=== PATIENT | male | born 1975 | race Hispanic/Latino ===

== ENCOUNTER 2019-10-30 12:10 | Emergency (ER) | payer BC ==
[2019-10-30] MEDS ORDERED: Lidocaine 1% (PF) 30 ML VIAL ONE (13:30)
[2019-10-30] MEDS ORDERED: HYDROcodone/Acetaminophen 10/325 mg Tablet ONE (13:30)
[2019-10-30] MEDS ORDERED: Adacel (T-DAP) 0.5 ML SYRINGE ONE (13:30)
== END 2019-10-30 14:19 | disposition home or self-care (01) ==
LOC: ERS 12:10
DX: S01.81XA Laceration without foreign body of other part of head, initial encounter (principal); I10 Essential (primary) hypertension; F41.9 Anxiety disorder, unspecified; F32.9 Major depressive disorder, single episode, unspecified; Z79.899 Other long term (current) drug therapy; W29.8XXA Contact with other powered hand tools and household machinery, initial encounter
CPT/HCPCS: 12013; 90471; 90715; J2001

== ENCOUNTER 2020-02-21 18:37 | Inpatient (IN) | payer BC, OTHER ==
[2020-02-21 19:08] LABS: #Eosinphils 0.3 thou/uL (0.0-0.7); #Lymphocytes 3.6 thou/uL (1.20-3.40); #Monocytes 0.4 thou/uL (0.11-0.59); #Neutrophils 3.2 thou/uL (1.40-6.50); %Basophils 0.2 % (0.0-1.0); %Eosinophils 3.8 % (0.0-10.0); %Lymphocytes 47.7 % (21.0-51.0); %Monocytes 5.6 % (0.0-10.0); %Neutrophils 42.7 % (42.0-75.0); Hemoglobin 14.7 g/dL (14.0-18.0); Mean Corpuscular HGB CONC 34.4 g/dL (32.0-36.0); Mean Corpuscular Hemoglobin 32.3 pg (27.0-31.0); Mean Corpuscular Volume 94.1 fL (78.0-98.0); Platelet Count 165 thou/uL (130-400); RBC Distribution Width 12.5 % (11.5-14.5); Red Blood Cell (RBC) Count 4.55 mill/uL (4.70-6.10); White Blood Cell (WBC) Count 7.5 thou/uL (4.8-10.8)
[2020-02-21 19:25] LABS: Bilirubin Negative (Negative); Blood, Urine Negative (Negative); Clarity Clear (Clear); Glucose, Urine (Dipstick) Normal (Negative); Ketone, Urine Negative (Negative); Leukocyte Negative Leu/uL (Negative); Nitrite Negative (Negative); Protein, Urine (Dipstick) 20 mg/dL (Neg-Trace); Specific Gravity, Urine 1.015 (1.002-1.036); Urobilinogen Normal mg/dL (Less than 2); pH, Urine 5.5 (5.0-9.0)
[2020-02-21 19:25] LABS: ALT (SGPT) 87 U/L (8-55); AST (SGOT) 67 U/L (5-34); Acetaminophen Less than 6.0 mcg/mL (10.0-30.0); Albumin 4.3 g/dL (3.5-5.0); Alcohol 18 mg/dL (Less than 10); Alkaline Phosphatase 91 U/L (40-110); Anion Gap 19 mmol/L (10-20); BUN (Urea Nitrogen) 14 mg/dL (8.9-20.6); Bilirubin, Total 0.4 mg/dL (0.2-1.2); CK (CPK) 134 U/L (30-200); Calc. Creatinine Clearance 0 mL/min (70-130); Calcium 8.8 mg/dL (7.8-10.44); Carbon Dioxide 24 mmol/L (22-29); Chloride 99 mmol/L (98-107); Estimated GFR-MDRD 74; Globulin 3.1 g/dL (2.4-3.5); Glucose 186 mg/dL (70-105); Magnesium 2.1 mg/dL (1.6-2.6); Potassium 3.1 mmol/L (3.5-5.1); Protein, Total 7.4 g/dL (6.0-8.3); Salicylate Less than 8.0 mg/dL (15.0-30.0); Sodium 139 mmol/L (136-145)
[2020-02-21] MEDS ORDERED: Naloxone HCl 0.4 mg/ml Vial ONE (19:39)
[2020-02-21 19:40] LABS: Amphetamine Not Detected (NotDetected); Barbiturates Screen Not Detected (NotDetected); Benzodiazepine Screen Detected (NotDetected); Cocaine Metabolite Screen Not Detected (NotDetected); Medtox Control Line Valid? VALID (VALID); Medtox Reader # READER 1; Methadone Not Detected (NotDetected); Methamphetamine Not Detected (NotDetected); Opiate Screen Detected (NotDetected); Oxycodone Screen Not Detected (NotDetected); Phencyclidine (PCP) Not Detected (NotDetected); THC/Cannabinoid Screen Not Detected (NotDetected); Tricyclic Screen Not Detected (NotDetected)
--- NOTE | 2020-02-21 19:54 | CT ---
EXAM: BRAIN CT WITHOUT IV CONTRAST: 02/21/20 HISTORY: Suspected overdose. FINDINGS: No focal mass or midline shift. No intra or extra-axial hemorrhage. Right maxillary mucosal disease/m ucous retention cyst. IMPRESSION: No acute intracranial process. No mass or bleed. Right maxillary sinus focal mucosal disease. POS: RRE
--- NOTE | 2020-02-21 19:56 | RAD ---
CHEST ONE VIEW: 02/21/20 HISTORY: Suspected overdose, agonal breathing. COMPARISON: 12/13/09. FINDINGS: Poor inspiration. Minimal right hemidiaphragm elevation. Minimal linear parenchymal change in the rig ht lower mid lung zone, horizontal, having the appearance that certainly could represent some focal s ubsegmental atelectasis. No confluent pneumonia or overt pleural effusion. IMPRESSION: Minimal right hemidiaphragm elevation with some linear parenchymal change in the right mid lower lung zone, probably minimal subsegmental atelectasis. Overall decreased inspiratory effort. POS: RRE
[2020-02-21] MEDS ORDERED: Potassium Chloride 20 MEQ/100 ML PREMIX BAG ONE (20:39)
[2020-02-21] MEDS ORDERED: Ondansetron ODT 4 MG TAB PO PRN (23:24)
[2020-02-21] MEDS ORDERED: Ondansetron PF 4 MG/2 ML Vial IVP PRN (23:24)
[2020-02-21] MEDS ORDERED: Acetaminophen 325 MG TAB PO PRN (23:24)
[2020-02-21] MEDS ORDERED: Acetaminophen 650 MG Suppository PR PRN (23:24)
[2020-02-22 00:54] VITALS: BMI 34.4
--- NOTE | 2020-02-22 01:08 | HP ---
DATE OF ADMISSION: 02/21/2020. TIME OF ASSESSMENT: 2100. REASON FOR ADMISSION: Suspected benzodiazepine overdose. PRIMARY CARE PHYSICIAN: Dr. Gregory Muñoz. HISTORY OF PRESENT ILLNESS: Mr. Werner is a 44-year-old gentleman, who was brought into the emergency department by his friends due to suspected overdose. The patient apparently was drinking with his friends and had taken hydrocodone and lorazepam. According to his , he has had issues with drug abuse since sustaining a back injury. The patient states he took a couple of hydrocodone and a couple of Ativan and had 3 beers while hanging out with his friends. Denies taking any other drugs. Denies intentional overdose. Denies any suicidal ideations. States that he was in pain and that was the reason for taking all those medications at once. Unclear exactly how many pills the patient took. Per EMS, the patient had agonal breathing while in route to the hospital and bag valve mask was used with sats of 98%. He was tachycardic at 110. Blood pressure was 122/91 and he was given 1 mg of Narcan. He underwent an EKG on arrival showing a normal sinus rhythm with a heart rate of 85. He had a QRS interval of 102 and QTc of 452 msec. The patient had a urine drug screen done which was positive for opiates and benzodiazepines. Otherwise negative. Plasma alcohol level was 18. Remaining labs showed a white count of 7.5, hemoglobin 14.7, hematocrit 42, platelets 165, neutrophils 42.7%. Sodium 139, potassium 3.1, glucose 186, BUN 14, creatinine 1.08, GFR 74, AST 67, ALT 87, troponin negative, albumin 4.3, lipase 69. Urinalysis was unremarkable. He did have a CT of the head done showing no acute intracranial process, mass, or bleed. Right maxillary sinus focal mucosal disease present. A chest x-ray was done which showed minimal right hemidiaphragm elevation with some linear parenchymal change in the right mid lower lung zone, probably minimal subsegmental atelectasis. Otherwise, overall decreased inspiratory effort. While in the emergency department, the patient has been saturating at 96% on 2 L. The patient reports that he was referred to Pain Management, but has been unable to set an appointment. States that he has not been seen due to issues with his insurance. The patient states he has no complaints at present. States he feels fine. He does remain very drowsy, but wakes easily. Responsive to voice. Did fall asleep frequently with occasional apneic episodes. He has no complaints. Able to follow commands. PAST MEDICAL HISTORY: 1. Chronic low back pain. 2. Chronic knee pain. 3. Hypertension. 4. Anxiety. 5. Depression. 6. Drug abuse. PAST SURGICAL HISTORY: Back surgery in 2012, L4/L5. SOCIAL HISTORY: The patient reports drinking socially. Denies any drug use, but reported to use street drugs. No tobacco use. ALLERGIES: GABI INHIBITORS. CURRENT MEDICATIONS: To be verified. PHYSICAL EXAMINATION: GENERAL: The patient is extremely drowsy, but easily responsive to voice. He did have a few apneic episodes during assessment/examination. VITAL SIGNS: Temperature 98.6, pulse 80, blood pressure 156/88, respirations 13, O2 saturation 96% on 2 L. HEENT: Normocephalic and atraumatic. Pupils are pinpoint. Extraocular movements intact. Opens his eyes easily when asked to. Oropharynx is clear. NECK: Supple. LUNGS: Clear to auscultation bilaterally. Deep inspiration with clear lung sounds throughout when prompted to take deep breaths. CARDIAC: Regular rate and rhythm. No chest wall tenderness. ABDOMEN: Soft, obese, nontender, nondistended. Normoactive bowel sounds present. No guarding or rigidity. EXTREMITIES: No lower leg swelling or edema. NEUROLOGIC: The patient is extremely drowsy, but responsive to voice. Able to follow commands. No neuro deficits on exam. Power 5/5 in all limbs. SKIN: Warm and dry. INVESTIGATIONS: As mentioned above in HPI. IMPRESSION AND PLAN: Mr. Werner is a 44-year-old gentleman, who is being admitted to [facility] for close observation due to suspected overdose on hydrocodone and Ativan. Alcohol level 18. The patient is without any complaints at present. Sats maintained on 2 L of oxygen with occasional apneic episodes witnessed during assessment and examination. The patient known to have a history of drug abuse including street drug use. We will continue to monitor the patient for now. In the ED, he was given 1 L of normal saline. Also given potassium replacement given the low potassium of 3.1. We will check his magnesium. Given 0.4 mg of naloxone in the ER. He is being admitted for continued observation as mentioned. He has a history of high blood pressure. We will monitor blood pressure and reconcile home medications once verified. GI prophylaxis with famotidine. Mechanical SCDs for DVT prophylaxis. Code status is full. Surrogate decision maker is his , Lorraine Mcdonald. Case discussed with Dr. Joyner, who has advised plan as above. Job ID: [id number]
[2020-02-22 04:17] LABS: #Eosinphils 0.1 thou/uL (0.0-0.7); #Lymphocytes 2.1 thou/uL (1.20-3.40); #Monocytes 0.8 thou/uL (0.11-0.59); #Neutrophils 8.7 thou/uL (1.40-6.50); %Basophils 0.3 % (0.0-1.0); %Eosinophils 0.6 % (0.0-10.0); %Lymphocytes 18.2 % (21.0-51.0); %Monocytes 6.8 % (0.0-10.0); %Neutrophils 74.1 % (42.0-75.0); Hemoglobin 14.1 g/dL (14.0-18.0); Mean Corpuscular HGB CONC 33.9 g/dL (32.0-36.0); Mean Corpuscular Hemoglobin 31.5 pg (27.0-31.0); Mean Corpuscular Volume 92.8 fL (78.0-98.0); Mean Platelet Volume 10.9 fL (7.4-10.4); Platelet Count 184 thou/uL (130-400); RBC Distribution Width 12.5 % (11.5-14.5); Red Blood Cell (RBC) Count 4.48 mill/uL (4.70-6.10); White Blood Cell (WBC) Count 11.8 thou/uL (4.8-10.8)
[2020-02-22 04:38] LABS: ALT (SGPT) 71 U/L (8-55); AST (SGOT) 46 U/L (5-34); Alkaline Phosphatase 80 U/L (40-110); Anion Gap 12 mmol/L (10-20); BUN (Urea Nitrogen) 10 mg/dL (8.9-20.6); Bilirubin, Total 0.5 mg/dL (0.2-1.2); Calc. Creatinine Clearance 188 mL/min (70-130); Calcium 8.8 mg/dL (7.8-10.44); Carbon Dioxide 29 mmol/L (22-29); Chloride 101 mmol/L (98-107); Estimated GFR-MDRD Greater than 90; Glucose 113 mg/dL (70-105); Potassium 3.8 mmol/L (3.5-5.1); Sodium 138 mmol/L (136-145)
[2020-02-22] MEDS ORDERED: Famotidine/PF 20 mg/2ml Vial SLOW IVP SCH (09:00)
--- NOTE | 2020-02-22 12:40 | PDOC.HOSPP ---
- Subjective Encounter Date: 02/22/20 Encounter Time: 07:45 Subjective: is waking up and tries to interact but falls asleep in between not in distress says he has a lot of work to do at home and cant stay here for long - Objective Vital Signs & Weight: Vital Signs (12 hours) Temp Pulse Ox 02/22/20 11:40 98.1 F 02/22/20 07:38 97 02/22/20 07:00 98.3 F 02/22/20 03:54 98.7 F Weight Weight 247 lb 4.8 oz Most Recent Monitor Data Heart Rate from ECG 82 NIBP 159/96 NIBP BP-Mean 117 Respiration from ECG 16 SpO2 100 I&O: 02/21/20 02/22/20 02/23/20 06:59 06:59 06:59 Intake Total 240 Output Total 400 Balance -160 Result Diagrams: 02/22/20 03:25 02/22/20 03:25 Hospitalist ROS - Medication Medications: Active Medications Generic Name Dose Route Start Last Admin Trade Name Dewayneq PRN Reason Stop Dose Admin Famotidine 20 mg 02/22/20 09:00 02/22/20 08:26 Pepcid SLOW IVP 20 mg Q12HR MARIANO Administration - Exam Eye: PERRL, anicteric sclera ENT: no oropharyngeal lesions, moist mucosa Neck: supple, no JVD Heart: RRR, no murmur Respiratory: no wheezes, no rales Gastrointestinal: soft, non-tender, non-distended, normal bowel sounds Extremities: no cyanosis, no edema Neurological: cranial nerve grossly intact, no focal deficits Hosp A/P (1) Overdose Code(s): T50.901A - POISONING BY UNSP DRUG/MEDS/BIOL SUBST, ACCIDENTAL, INIT Status: Acute Qualifiers: Encounter type: subsequent encounter Injury intent: accidental or unintentional Qualified Code(s): T50.901D - Poisoning by unspecified drugs, medicaments and biological substances, accidental (unintentional), subsequent encounter (2) Obesity (BMI 30.0-34.9) Code(s): E66.9 - OBESITY, UNSPECIFIED Status: Chronic (3) GOLDIE (obstructive sleep apnea) Code(s): G47.33 - OBSTRUCTIVE SLEEP APNEA (ADULT) (PEDIATRIC) Status: Suspected (4) HTN (hypertension) Code(s): I10 - ESSENTIAL (PRIMARY) HYPERTENSION Status: Chronic Qualifiers: Hypertension type: essential hypertension Qualified Code(s): I10 - Essential (primary) hypertension (5) Chronic back pain Code(s): M54.9 - DORSALGIA, UNSPECIFIED; G89.29 - OTHER CHRONIC PAIN Status: Chronic - Plan may dc home when he wakes up fully and ambulates in hallway he has to have a good attention span when conversing if he goes home today he cannot drive or operate heavy machinary when he awakens he is fully oriented this am CM to provide detox facility info to family hemostable he is maintaining airway and is not in any distress
[2020-02-22 15:27] VITALS: TEMP 98.3
--- NOTE | 2020-02-23 14:59 | DIS ---
DATE OF ADMISSION: 02/21/2020 DATE OF DISCHARGE: 02/22/2020 DISCHARGE DISPOSITION: To home. PRIMARY DISCHARGE DIAGNOSIS: Overdose on lorazepam and hydrocodone along with alcohol. SECONDARY DISCHARGE DIAGNOSES: Hypertension, obstructive sleep apnea, obesity, chronic back pain. PROCEDURES DONE DURING HOSPITALIZATION: Chest x-ray done shows right hemidiaphragm mild elevation. CT brain, no acute intracranial process. No mass or bleed. H and H 14 and 41, platelet count 184, and MCV 92. BUN 10, creatinine 0.7. Urine tox screen positive for benzodiazepines and opiates. Plasma alcohol 18. DISCHARGE PLAN: The patient to follow up with his primary care physician, Dr. Gregory Muñoz, in 3 days. He also needs to follow up with Dr. Persaud, neurosurgeon, in 2 to 4 weeks. BRIEF COURSE DURING HOSPITALIZATION: The patient initially was brought to emergency room by his friends due to suspected overdose. He was apparently drinking alcohol with his friends and had taken hydrocodone and lorazepam. He has known history of chronic back pain and has had prior surgery. He was also getting epidural shots with Dr. Bailey before he was fired from the practice. He was very somnolent on arrival and was placed in IMCU for close monitoring of airway. The patient this afternoon is oriented and has ambulated in the hallway. He is wanting to go home, come what may. I have spoken to his , Ms. Lorraine Mcdonald. He is not to operate any machinery or drive today until he is fully awake. He has underlying sleep apnea as well. The patient would benefit from outpatient neurosurgical consultation to address his chronic back pain. Please see a [id number] documentation for the day of discharge on freshbag. I have seen and examined patient on the day of discharge. Job ID: [id number] [facility]
--- NOTE | 2020-02-23 22:07 | PQF ---
CLINICAL DOCUMENTATION CLARIFICATION FORM: Dear : Joie Reynaga Date / Time:02/23/2020 6688 Please exercise your independent, professional judgment in responding to the clarification form. Clinical indicators are provided on the bottom of this form for your review Please check appropriate box(es): [ x ] Encephalopathy: Etiology: [ ] Metabolic [ ] Toxic [ x ] Drug induced: Overdose of Lorazepam and Hydrocodone [ ] Unspecified [ ] Other (please specify) [ ] Transient Alteration of Awareness [ ] Other diagnosis [ ] Unable to determine In addition, please specify: Present on Admission (POA): [x ] Yes [ ] No [ ] Unable to determine Physician Signature: Date/Time: For continuity of documentation, please document condition throughout progress notes and discharge summary. Thank You. To be completed by CDI/Coding staff for physician review: Present Clinical Indicators - Signs / Symptoms / Labs Results and Location in Medical Record [ X] Opiates Detected, Benzodiazepines Detected, Alcohol plasma level 18 Laboratory Toxicology 02/20 [ X] BP 179/91, Pulse 85, Resp 15, Temp 99.5 Vital signs 02/20 [ X] GCS 13 ED notes p 12 02/20 [ X] brought into ED due to suspected overdose H&P p1 02/20 Smith PA-C [ X] Pt apparently was drinking with his friends and taken hydrocodone and lorazepam H&P p1 02/20 Smith PA-C [ X] The pt is extremely drowsy, but easily responsive to voice H&P p2 02/20 Smith PA-C [ X] He did have a few apneic episode during assessment/examination H&P p2 Smith PA-C [ X] Overdose on lorazepam and hydrocodone along with alcohol Discharge summary p1 02/21 Dr Reynaga [ X] He was very somnolent on arrival Discharge summary p1 02/21 Dr Reynaga Present Risk Factors Results and Location in Medical Record [ X] HTN Discharge summary p1 02/21 Dr Reynaga [ X] GOLDIE Discharge summary p1 02/21 Dr Reynaga [ X] Obesity Discharge summary p1 02/21 Dr Reynaga Present Treatments Results and Location in Medical Record [ X] Drug screening Laboratory Toxicology 02/20 [ X] Narcan 4 mg oral MAR 02/20 [ X] Potassium Chloride 20 meq MAR 02/20 [ X] Oxygen 2L Respiratory Panel 02/20 [ X] Admitted to IMCU Ordered 02/20 Sarah NAVARRETE CDS/Business Attorney Signature: Imani Sebastian Phone #: [phone] Date/Time: 02/23/2020 4190 This is a permanent part of the Medical Record [facility]
== END 2020-02-22 17:29 | disposition home or self-care (01) | DRG 917 ==
LOC: ERS 18:37 → IMCU/EMU 21:11
PROVIDERS: ADMIT Internal Medicine; ATTEND Internal Medicine
DX: T42.4X1A Poisoning by benzodiazepines, accidental (unintentional), initial encounter (principal); G92 Toxic encephalopathy; T40.2X1A Poisoning by other opioids, accidental (unintentional), initial encounter; T51.0X1A Toxic effect of ethanol, accidental (unintentional), initial encounter; I10 Essential (primary) hypertension; G47.33 Obstructive sleep apnea (adult) (pediatric); E66.9 Obesity, unspecified; G89.29 Other chronic pain; M54.5 Low back pain; M25.569 Pain in unspecified knee; F41.9 Anxiety disorder, unspecified; F32.9 Major depressive disorder, single episode, unspecified; R40.0 Somnolence; Z88.8 Allergy status to other drugs, medicaments and biological substances; Z68.34 Body mass index [BMI] 34.0-34.9, adult; Z79.899 Other long term (current) drug therapy
CPT/HCPCS: 36415; 70450; 71045; 80053; 80306; 80307; 81003; 82140; 82550; 83690; 83735; 84484; 85025; 93005; J2310; J3480; S0028

== ENCOUNTER 2020-07-08 08:13 | Outpatient (CLI) | payer BC ==
--- NOTE | 2020-07-08 10:08 | CT ---
CT ABDOMEN AND PELVIS WITH ORAL AND IV CONTRAST: HISTORY: Abdominal pain. Right-sided abdominal pain and tenderness. FINDINGS: There are dependent changes in the lung bases. A small hiatal hernia is present. There is thickenin g of the wall of the distal esophagus close to the GE junction. No calcified gallstones are seen. The liver demonstrates decreased attenuation compared to the spleen consistent with fatty infiltratio n. No focal mass or abnormal biliary ductal dilatation is seen. The spleen, pancreas, and adrenal g lands appear normal. There are small low-density lesions in the kidneys, likely cysts. No free air, free fluid, or lymphadenopathy is seen it he abdomen or pelvis. The small bowel loops a re not abnormally dilated. A normal-appearing appendix is present. The aorta is of normal caliber w ithout aneurysmal dilatation. There are degenerative changes in the spine. Small bilateral fat-cont aining inguinal herniae are present. IMPRESSION: 1. Small hiatal hernia with thickening of the wall of the distal esophagus close to the gastroesopha geal junction. Evaluation with upper endoscopy is recommended. 2. Fatty liver. 3. Probable small renal cysts. 4. Small bilateral fat-containing inguinal herniae. POS: OFF
== END 2020-07-08 08:14 | disposition home or self-care (01) ==
LOC: BICCT 08:13
PROVIDERS: ATTEND Surgery
DX: R10.9 Unspecified abdominal pain (principal); K44.9 Diaphragmatic hernia without obstruction or gangrene; K76.0 Fatty (change of) liver, not elsewhere classified; K40.20 Bilateral inguinal hernia, without obstruction or gangrene, not specified as recurrent; K22.8 Other specified diseases of esophagus
CPT/HCPCS: 74177

== ENCOUNTER 2020-12-14 12:41 | Outpatient (CLI) | payer BC | END 2020-12-14 12:42 | disposition home or self-care (01) | LOC: BICRAD 12:41 | PROVIDERS: ATTEND Nurse Practitioner Family | DX: M54.41 Lumbago with sciatica, right side (principal); M47.816 Spondylosis without myelopathy or radiculopathy, lumbar region | CPT/HCPCS: 72100 ==

== ENCOUNTER 2022-04-11 10:38 | Outpatient (CLI) | payer BC | END 2022-04-11 10:39 | disposition home or self-care (01) | LOC: BICULT 10:38 | PROVIDERS: ATTEND Student in an Organized Health Care Education/Training Program | DX: N50.811 Right testicular pain (principal) | CPT/HCPCS: 76870; 93976 ==

== ENCOUNTER 2022-04-22 11:00 | Outpatient (CLI) | payer BC | END 2022-04-22 11:01 | disposition home or self-care (01) | PROVIDERS: ATTEND Student in an Organized Health Care Education/Training Program | DX: I10 Essential (primary) hypertension (principal); R06.00 Dyspnea, unspecified | CPT/HCPCS: 93017 ==